=== PATIENT | female | born 1975 | race Caucasian/White ===

== ENCOUNTER 2016-07-22 13:20 | Emergency (ER) | payer SELFPAY ==
[2016-07-22] MEDS ORDERED: Sodium Chloride 0.9% 1,000 ML ONE (13:57)
[2016-07-22 13:58] LABS: Bilirubin Negative (Negative); Blood, Urine Large (Negative); Glucose, Urine (Dipstick) Negative (Negative); Ketone, Urine Negative (Negative); Nitrite Negative (Negative); Protein, Urine (Dipstick) Negative (Neg-Trace)
[2016-07-22 13:59] LABS: RBC/HPF 21-50 HPF (0-3); Squamous Epithelial 0-3 HPF (0-3); WBC/HPF 0-3 HPF (0-3)
[2016-07-22 14:00] LABS: Bacteria/HPF None Seen HPF (None Seen)
[2016-07-22] MEDS ORDERED: diphenhydrAMINE HCl 50 MG/ML 1 ML VIAL ONE (14:15)
[2016-07-22] MEDS ORDERED: Metoclopramide HCl 10 MG/2 ML VIAL ONE (14:16)
--- NOTE | 2016-07-22 15:15 | ERRECORD ---
[facility] HPI NAUSEA/VOMITING/DIARRHEA (13:41 JLOY) CHIEF COMPLAINT: Patient presents for evaluation of nausea, Patient presents for evaluation of vomiting, Number of times: 2, of undigested food, Patient presents for evaluation of Pt woke this am with dizziness and 'seeing white spots'. Vomitted x2 at work and sometime this am developed an occipital TOMAS that feels just like her migraines TOMAS. SHe has them occasionally and they can last days and cause vomitting. Pt also notes some increased vaginal discharge for 1 month and some mild sharp pain in the LLQ x1 month unchanged. HISTORIAN: History provided by patient. LOCATION FEMALE: Symptoms are localized, most severe in the occipital pain. QUALITY: Pain is dull in nature. TIME COURSE: Gradual onset of symptoms, Symptoms are worsening, are constant. ASSOCIATED WITH FEMALE: No associated chills, No associated constipation, No associated diarrhea, No associated fever, No associated flank pain, No associated hematuria, Associated with nausea, No associated inability to tolerate oral intake, No associated urinary tract infection signs or symptoms, Associated with vomiting, Associated with vaginal discharge, No associated vaginal bleeding. EXACERBATED BY: Patient's condition exacerbated by nothing. RELIEVED BY: Patient's condition relieved by nothing. ROS (13:44 JLOY) CONSTITUTIONAL: Historian denies chills, denies fever. EYES: Historian denies eye pain, denies eye redness, denies eye discharge, denies photophobia, reports vision changes. ENT: Historian denies rhinorrhea, denies sore throat. CARDIOVASCULAR: Historian denies chest pain. RESPIRATORY: Historian denies cough, denies shortness of breath, denies sputum. GI: Historian reports abdominal pain, denies constipation, denies diarrhea, denies hematemesis, denies melena, reports nausea, reports vomiting. GENITOURINARY FEMALE: Historian denies dysuria, denies frequency, denies hematuria, denies vaginal bleeding, reports vaginal discharge. MUSCULOSKELETAL: Historian denies back pain. SKIN: Historian denies rash, denies skin changes. NEUROLOGIC: Historian reports dizziness, reports headache, denies paralysis, denies paresthesias, denies sensory changes. PAST MEDICAL HISTORY MEDICAL HISTORY: Tetanus not up to date, Notes: Bladder and Kidney infections previously, Flu vaccine not up to date,. (13:29 BDON) FEMALE SURGICAL HISTORY: Surgical history of tubal &a-1R&a+25V*p+0X*l4660U*c202B*c15G*c2P*p-0X&a-25V&a+1R Name: Kwasi Barraza : 1975 F41 MedRec: [id number] AcctNum: [id number] Prepared: [facility] Jul 22, 2016 15:32 by Interface Page 1 of 3 pMD [facility] EMERGENCY RECORD ligation, Date of surgery 1996. (13:29 BDON) SOCIAL HISTORY: Patient denies alcohol use, Patient denies drug use, Patient has no smoking history, Lives at home, with family. (13:29 BDON) NOTES: Nursing records reviewed, Agree with nursing records. (13:45 JLOY) KNOWN ALLERGIES No Known Drug Allergies CURRENT MEDICATIONS (13:27 BDON) Aspirin Low Dose: TABLET, DELAYED RELEASE (ENTERIC COATED) : Strength - 81 mg : ORAL Patient Dose: Unknown. VITAL SIGNS VITAL SIGNS: BP: 131/66, Resp: 18, Temp: 97.9 (Oral), Pain: 3, O2 sat: 98, Time: 07/22/2016 13:24. (13:24 BDON) Pulse: 76, Time: 07/22/2016 13:27. (13:27 BDON) Resp: 18, Pain: 1, Time: 07/22/2016 15:22. (15:22 BDON) PHYSICAL EXAM (13:44 JLOY) CONSTITUTIONAL: Vital signs reviewed, Patient appears non toxic, Patient alert and oriented to person, place and time. EYES: Eye exam included findings of eyelids normal to inspection, Pupils equally round and reactive to light, Conjunctiva normal. ENT: Pharynx exam normal, Uvula exam normal, Tonsil exam normal, Mouth exam normal, mucous membranes moist. NECK: Neck exam included findings of normal range of motion, Trachea midline. RESPIRATORY CHEST: Respiratory exam included findings of no respiratory distress, Breath sounds clear, No wheezing, No rales, No rhonchi, Chest exam included findings of chest movement symmetrical. CARDIOVASCULAR: Cardiovascular exam included findings of heart rate regular rate and rhythm, Heart sounds normal. ABDOMEN FEMALE: Abdominal exam included findings of abdomen nontender, Bowel sounds normal, Liver normal, Spleen normal, no peritoneal signs, no rigidity, no guarding, no rebound. BACK: Back exam included findings of normal inspection, range of motion normal, no tenderness, no costovertebral angle tenderness. UPPER EXTREMITY: Upper extremity exam included findings of inspection normal, Radial pulse normal, no cyanosis, no clubbing, no edema. LOWER EXTREMITY: Lower extremity exam included findings of inspection normal, no edema, no calf tenderness. NEURO: [place] coma scale 15, Neuro exam findings include patient oriented to person, place and time, Speech normal. SKIN: Skin exam included findings of skin warm, dry, and normal in color, no rash. PSYCHIATRIC: Normal affect. &a-1R&a+25V*p+0X*q1750C*c202B*c15G*c2P*p-0X&a-25V&a+1R Name: Kwasi Barraza : 1975 F41 MedRec: [id number] AcctNum: [id number] Prepared: [facility] Jul 22, 2016 15:32 by Interface Page 2 of 3 pMD [facility] EMERGENCY RECORD MEDICATION ADMINISTRATION SUMMARY Drug Name: metoclopramide injection, Dose Ordered: 10 mg, Route: IV Push, Status: Given, Time: 14:18 07/22/2016, Drug Name: diphenhydrAMINE injection, Dose Ordered: 25 mg, Route: IV Push, Status: Given, Time: 14:17 07/22/2016, Drug Name: sodium chloride 0.9 % intravenous, Dose Ordered: 1 L, Route: IV Fluid Infusion, Status: Given, Time: 14:13 07/22/2016, Detailed record available in Medication Service section. DOCTOR NOTES (15:07 JESUS) RE-EVALUATION: The patient's condition has improved, TOMAS nearly resolved. No more dizziness or nausea. PROBLEM LIST No recorded problems DIAGNOSIS (15:05 JLCOURTNEY) FINAL: PRIMARY: Migraine (unspecified), ADDITIONAL: Nausea with vomiting. PRESCRIPTION No recorded prescriptions DISPOSITION PATIENT: Disposition Type: Discharge, Disposition: *Discharge Home. (15:05 JLOY) Patient left the department. (15:26 BDON) Poe: NIKA=LILLIANA Tejeda Bettye JLOY=MD Rodriguez Joshua &a-1R&a+25V*p+0X*w0711P*c202B*c15G*c2P*p-0X&a-25V&a+1R Name: Nir Barrazamayur Gutierrez : 1975 F41 MedRec: [id number] AcctNum: [id number] Prepared: A[facility] Jul 22, 2016 15:32 by Interface Page 3 of 3 pMD MTDD
--- NOTE | 2016-07-22 15:22 | PICIS ---
[facility] EMERGENCY RECORD TRIAGE (13:26 BDON) TRIAGE NOTES: Dizzy, vomiting, headache, no fever, supra pubic pain described as sharp. (13:26 BDON) PATIENT: NAME: Kwasi Barraza, AGE: 41, GENDER: female, : Tue1975, TIME OF GREET: TueJul 22, 2016 13:21, PREFERRED LANGUAGE: Peruvian, ETHNICITY: Not or , ECODE BILLING MAP: [facility], SSN: [id number], Zip Code: [address], KG WEIGHT: 72.57, PHONE: , , , PERSON ID: [id number], PCP: none. (13:26 BDON) COMPLAINT: DIZZINESS,NAUSEA,HEADACHE. (13:26 BDON) ADMISSION: URGENCY: 4 Non Urgent, ADMISSION SOURCE: Home, TRANSPORT: Walk-in, BED: TRIAGE. (13:26 BDON) ASSESSMENT: Assessment: Dizziness, headache and supra pubic pain, saw white dots when woke up but normal now, Symptoms began 7 hours ago. (13:29 BDON) LMP: Last menstrual period: 07/18/2016. (13:29 BDON) PROVIDERS: TRIAGE NURSE: Crystal Tejeda RN. (13:26 BDON) VITAL SIGNS: BP 131/66, Resp 18, Temp 97.9, (Oral), Pain 3, O2 Sat 98, Time 07/22/2016 13:24. (13:24 BDON) Pulse 76, Time 07/22/2016 13:27. (13:27 BDON) PREVIOUS VISIT ALLERGIES: No Known Drug Allergies. (13:26 BDON) No Known Drug Allergies. (13:29 BDON) KNOWN ALLERGIES No Known Drug Allergies CURRENT MEDICATIONS (13:27 BDON) Aspirin Low Dose: TABLET, DELAYED RELEASE (ENTERIC COATED) : Strength - 81 mg : ORAL Patient Dose: Unknown. VITAL SIGNS VITAL SIGNS: BP: 131/66, Resp: 18, Temp: 97.9 (Oral), Pain: 3, O2 sat: 98, Time: 07/22/2016 13:24. (13:24 BDON) Pulse: 76, Time: 07/22/2016 13:27. (13:27 BDON) Resp: 18, Pain: 1, Time: 07/22/2016 15:22. (15:22 BDON) NURSING ASSESSMENT: GENITOURINARY (13:35 BDON) CONSTITUTIONAL: Patient arrives ambulatory, Gait steady, History obtained from patient, Patient appears, uncomfortable, Patient cooperative, Patient alert, Oriented to person, place and time, Skin warm, Skin dry, Skin normal in color. GENITOURINARY FEMALE: no associated urinary complaints, Associated with vaginal discharge, states always have vaginal discharge, Associated with vaginal bleeding. ABDOMEN: Abdomen assessment findings include abdomen symmetrical, Abdomen soft, non-tender. SAFETY: Cart/Stretcher in lowest position, Family at bedside, Hospital ID band on, Patient in view of the nursing station. &a-1R&a+25V*p+0X*k8946V*c202B*c15G*c2P*p-0X&a-25V&a+1R Name: Christi Kwasi M : 1975 F41 MedRec: [id number] AcctNum: [id number] Prepared: [facility] Jul 22, 2016 15:32 by Interface Page 1 of 7 pMD [facility] EMERGENCY RECORD NURSING PROCEDURE: DISCHARGE NOTE (15:22 BDON) DISCHARGE: Patient discharged to home, ambulating without assistance, family driving, Summary of Care printed/ provided, Patient requested and was provided an electronic copy of Discharge Instructions, Transition record given to patient, Discharge instructions given to patient, Simple or moderate discharge teaching performed, Patient treated and evaluated by physician. VITAL SIGNS: Resp: 18, Pain: 1. NURSING PROCEDURE: IV PATIENT IDENITIFIER: Patient actively involved in identification process. (14:08 BDON) Patient actively involved in identification process. (15:15 BDON) IV SITE 1: IV therapy indicated for hydration, IV therapy indicated for medication administration, IV established, to the right wrist, using a 22 gauge catheter, in two attempts. (14:08 BDON) FOLLOW-UP SITE 1: IV discontinued, due to patient being discharged, catheter intact. (15:15 BDON) NURSING PROCEDURE: NURSE NOTES (14:50 BDON) NURSES NOTES: Patient is improving, Notes: normal saline placed in pressure bag to infuse faster,. ORDER DETAILS Order Name: GC/Chlamydia Profile by PCR, Status: Active, Time: 13:44 07/22/2016, User: JESUS, - Ordered for: MD Rodriguez Joshua, - Entered by: MD Rordiguez Joshua - [facility] Jul 22, 2016 13:44, - Quantity: 1, Order Name: Test, Urine (BHCG), Status: Active, Time: 13:33 07/22/2016, User: NIKA, - Ordered for: MD Rodriguez Joshua, - Entered by: LILLIANA Tejeda, Crystal [facility] Jul 22, 2016 13:33, - Quantity: 1, Order Name: SALINE LOCK, Status: Done, Time: 14:54 07/22/2016, User: NIKA, - Ordered for: MD Rodriguez Joshua, - Entered by: MD Rodriguez Joshua - [facility] Jul 22, 2016 13:41, - Quantity: 1, Order Name: Urinalysis w/ Rflx Microscopic, Status: Active, Time: 13:33 07/22/2016, User: NIKA, - Ordered for: MD Rodriguez Joshua, - Entered by: LILLIANA Tejeda, Crystal [facility] Jul 22, 2016 13:33, - Quantity: 1. MEDICATION ADMINISTRATION SUMMARY Drug Name: metoclopramide injection, Dose Ordered: 10 mg, Route: IV &a-1R&a+25V*p+0X*y5112B*c202B*c15G*c2P*p-0X&a-25V&a+1R Name: Kwasi Barraza : 1975 F41 MedRec: [id number] AcctNum: [id number] Prepared: TueJul 22, 2016 15:32 by Interface Page 2 of 7 pMD [facility] EMERGENCY RECORD Push, Status: Given, Time: 14:18 07/22/2016, Drug Name: diphenhydrAMINE injection, Dose Ordered: 25 mg, Route: IV Push, Status: Given, Time: 14:17 07/22/2016, Drug Name: sodium chloride 0.9 % intravenous, Dose Ordered: 1 L, Route: IV Fluid Infusion, Status: Given, Time: 14:13 07/22/2016, Detailed record available in Medication Service section. MEDICATION SERVICE diphenhydrAMINE injection: Order: diphenhydrAMINE injection (diphenhydramine HCl) - Dose: 25 mg : IV Push Ordered by: Storm Rodriguez MD Entered by: Storm Rodriguez MD [facility] Jul 22, 2016 13:41 Documented as given by: Crystal Tejeda RN [facility] Jul 22, 2016 14:17 Patient, Medication, Dose, Route and Time verified prior to administration. IV SITE #1 IVP, Catheter placement confirmed via flush prior to administration, IV site without signs or symptoms of infiltration during medication administration, No swelling during administration, No drainage during administration, IV flushed after administration, Correct patient, time, route, dose and medication confirmed prior to administration, Patient advised of actions and side-effects prior to administration, Allergies confirmed and medications reviewed prior to administration. : Follow Up : _IV SITE #1:_. (14:20 BDON) metoclopramide injection: Order: metoclopramide injection (metoclopramide HCl) - Dose: 10 mg : IV Push Ordered by: Storm Rodriguez MD Entered by: Storm Rodriguez MD [facility] Jul 22, 2016 13:41 Documented as given by: Crystal Tejeda RN [facility] Jul 22, 2016 14:18 Patient, Medication, Dose, Route and Time verified prior to administration. IV SITE #1 IVP. : Follow Up : _IV SITE #1:_, iv push. (14:20 BDON) sodium chloride 0.9 % intravenous: Order: sodium chloride 0.9 % intravenous (0.9 % sodium chloride) - Dose: 1 L : IV Fluid Infusion Ordered by: Storm Rodriguez MD Entered by: Storm Rodriguez MD [facility] Jul 22, 2016 13:41 Documented as given by: Crystal Tejeda RN [facility] Jul 22, 2016 14:13 Patient, Medication, Dose, Route and Time verified prior to administration. Amount given: 1000 ml, IV SITE #1 IV fluids established for hydration, Catheter placement confirmed via flush prior to administration, IV site without signs or symptoms of infiltration during medication administration, No swelling during administration, No drainage during administration, IV flushed after administration, Correct patient, time, route, dose and medication confirmed prior to administration, Patient advised of actions and side-effects prior to administration, Allergies confirmed and medications reviewed prior to administration, Patient in position of comfort, Cart in lowest &a-1R&a+25V*p+0X*c3440X*c202B*c15G*c2P*p-0X&a-25V&a+1R Name: Kwasi Barraza : 1975 F41 MedRec: [id number] AcctNum: [id number] Prepared: TueJul 22, 2016 15:32 by Interface Page 3 of 7 pMD [facility] EMERGENCY RECORD position, Family at bedside. : Follow Up : No signs or symptoms of allergic reaction noted, _IV SITE #1:_, IV fluid infusion discontinued, on TueJul 22, 2016 15:02, 50 minutes, . (15:22 BDON) HPI NAUSEA/VOMITING/DIARRHEA (13:41 JLOY) CHIEF COMPLAINT: Patient presents for evaluation of nausea, Patient presents for evaluation of vomiting, Number of times: 2, of undigested food, Patient presents for evaluation of Pt woke this am with dizziness and 'seeing white spots'. Vomitted x2 at work and sometime this am developed an occipital TOMAS that feels just like her migraines TOMAS. SHe has them occasionally and they can last days and cause vomitting. Pt also notes some increased vaginal discharge for 1 month and some mild sharp pain in the LLQ x1 month unchanged. HISTORIAN: History provided by patient. LOCATION FEMALE: Symptoms are localized, most severe in the occipital pain. QUALITY: Pain is dull in nature. TIME COURSE: Gradual onset of symptoms, Symptoms are worsening, are constant. ASSOCIATED WITH FEMALE: No associated chills, No associated constipation, No associated diarrhea, No associated fever, No associated flank pain, No associated hematuria, Associated with nausea, No associated inability to tolerate oral intake, No associated urinary tract infection signs or symptoms, Associated with vomiting, Associated with vaginal discharge, No associated vaginal bleeding. EXACERBATED BY: Patient's condition exacerbated by nothing. RELIEVED BY: Patient's condition relieved by nothing. ROS (13:44 JLOY) CONSTITUTIONAL: Historian denies chills, denies fever. EYES: Historian denies eye pain, denies eye redness, denies eye discharge, denies photophobia, reports vision changes. ENT: Historian denies rhinorrhea, denies sore throat. CARDIOVASCULAR: Historian denies chest pain. RESPIRATORY: Historian denies cough, denies shortness of breath, denies sputum. GI: Historian reports abdominal pain, denies constipation, denies diarrhea, denies hematemesis, denies melena, reports nausea, reports vomiting. GENITOURINARY FEMALE: Historian denies dysuria, denies frequency, denies hematuria, denies vaginal bleeding, reports vaginal discharge. MUSCULOSKELETAL: Historian denies back pain. SKIN: Historian denies rash, denies skin changes. NEUROLOGIC: Historian reports dizziness, reports headache, denies paralysis, denies paresthesias, denies sensory changes. &a-1R&a+25V*p+0X*z0197X*c202B*c15G*c2P*p-0X&a-25V&a+1R Name: Kwasi Barraza : 1975 F41 MedRec: [id number] AcctNum: [id number] Prepared: Amy Jul 22, 2016 15:32 by Interface Page 4 of 7 pMD [facility] EMERGENCY RECORD PAST MEDICAL HISTORY MEDICAL HISTORY: Tetanus not up to date, Notes: Bladder and Kidney infections previously, Flu vaccine not up to date,. (13:29 BDON) FEMALE SURGICAL HISTORY: Surgical history of tubal ligation, Date of surgery 1996. (13:29 BDON) SOCIAL HISTORY: Patient denies alcohol use, Patient denies drug use, Patient has no smoking history, Lives at home, with family. (13:29 BDON) NOTES: Nursing records reviewed, Agree with nursing records. (13:45 JLOY) PHYSICAL EXAM (13:44 JLOY) CONSTITUTIONAL: Vital signs reviewed, Patient appears non toxic, Patient alert and oriented to person, place and time. EYES: Eye exam included findings of eyelids normal to inspection, Pupils equally round and reactive to light, Conjunctiva normal. ENT: Pharynx exam normal, Uvula exam normal, Tonsil exam normal, Mouth exam normal, mucous membranes moist. NECK: Neck exam included findings of normal range of motion, Trachea midline. RESPIRATORY CHEST: Respiratory exam included findings of no respiratory distress, Breath sounds clear, No wheezing, No rales, No rhonchi, Chest exam included findings of chest movement symmetrical. CARDIOVASCULAR: Cardiovascular exam included findings of heart rate regular rate and rhythm, Heart sounds normal. ABDOMEN FEMALE: Abdominal exam included findings of abdomen nontender, Bowel sounds normal, Liver normal, Spleen normal, no peritoneal signs, no rigidity, no guarding, no rebound. BACK: Back exam included findings of normal inspection, range of motion normal, no tenderness, no costovertebral angle tenderness. UPPER EXTREMITY: Upper extremity exam included findings of inspection normal, Radial pulse normal, no cyanosis, no clubbing, no edema. LOWER EXTREMITY: Lower extremity exam included findings of inspection normal, no edema, no calf tenderness. NEURO: [place] coma scale 15, Neuro exam findings include patient oriented to person, place and time, Speech normal. SKIN: Skin exam included findings of skin warm, dry, and normal in color, no rash. PSYCHIATRIC: Normal affect. EVENTS TRANSFER: Triage to Emergency Triage. (TueJul 22, 2016 13:26 BDON) Emergency Triage to Emergency Room -03. (13:27 BDON) Removed from Emergency Emergency Room -03. (15:26 BDON) DOCTOR NOTES (15:07 JLOY) RE-EVALUATION: The patient's condition has improved, TOMAS &a-1R&a+25V*p+0X*q0567D*c202B*c15G*c2P*p-0X&a-25V&a+1R Name: Kwasi Barraza : 1975 F41 MedRec: [id number] AcctNum: [id number] Prepared: TueJul 22, 2016 15:32 by Interface Page 5 of 7 pMD [facility] EMERGENCY RECORD nearly resolved. No more dizziness or nausea. PROBLEM LIST No recorded problems DIAGNOSIS (15:05 JLOY) FINAL: PRIMARY: Migraine (unspecified), ADDITIONAL: Nausea with vomiting. DISPOSITION PATIENT: Disposition Type: Discharge, Disposition: *Discharge Home. (15:05 JLOY) Patient left the department. (15:26 BDON) INSTRUCTION (15:06 JLOY) DISCHARGE: MIGRAINE HEADACHE. FOLLOWUP: Follow up with Primary Care Physician in 7-10 days. SPECIAL: Follow up with your doctor to look into the abdominal pain you have been having for the past month or so. If it worsens before you can see your doctor you should return to the ER. PRESCRIPTION No recorded prescriptions IMAGING *DISCHARGE INSTRUCTIONS RECEIPT: Image captured from scanner. (15:25 BDON) *SUPPLY CHARGE SHEET: Image captured from scanner. (15:26 BDON) ADMIN DIGITAL SIGNATURE: MD Michael, Storm. (15:07 JL) MD Rodriguez Joshua. (15:07 JL) LILLIANA Tejeda, Crystal. (15:26 BDON) RESULTS (15:05 JL) LABORATORY: Urine Microscopic Collection DT: TueJul 22, 2016 13:57, *RBC/HPF 21-50 - H HPF, Range (0-3), WBC/HPF 0-3 HPF, Range (0-3), Squamous Epithelial 0-3 HPF, Range (0-3), Bacteria/HPF None Seen HPF, Range (None Seen). Urinalysis w/ Rflx Microscopic Collection DT: TueJul 22, 2016 13:57, Color Yellow , Range (Yellow), Clarity Slightly Cloudy , Range (Clear), Specific Gays, Urine 1.025 , Range (1.005-1.030), pH, Urine 6.5 , Range (5.0-9.0), Leukocyte Negative , Range (Negative), Nitrite Negative , Range (Negative), Protein, Urine (Dipstick) Negative mg/dL, Range (Neg-Trace), Glucose, Urine (Dipstick) Negative mg/dL, Range (Negative), &a-1R&a+25V*p+0X*f6686G*c202B*c15G*c2P*p-0X&a-25V&a+1R Name: Kwasi Barraza Matt : 1975 F41 MedRec: [id number] AcctNum: [id number] Prepared: TueJul 22, 2016 15:32 by Interface Page 6 of 7 pMD [facility] EMERGENCY RECORD Ketone, Urine Negative mg/dL, Range (Negative), *Urobilinogen 2.0 - H mg/dL, Range (0.2-1.0), Bilirubin Negative , Range (Negative), *Blood, Urine Large - H , Range (Negative). Test, Urine ([facility]) Collection DT: TueJul 22, 2016 13:57, Test - Urine (BHCG) NEGATIVE , Range (NEGATIVE), Method of sensitivity- Indeterminant: results should be repeated, after 48 hours. Positive: results may be detected as early as 4-5 days before a first missed menses. Elimination of BHCG-, Elimination following first trimester D&C: 29-44 Days , Elimination following term : 8-24 Days , Specific Gays 1.025 , Range (1.002-1.036), A dilute urine specimen may, not contain customer engagement representative levels of hCG. If is still, suspected, a first morning urine specimen OR a random blood specimen should, be obtained from the patient 48-72 hours later and re-tested. , . Poe: NIKA=LILLIANA Tejeda, Crystal LEE=MD Michael, Storm &a-1R&a+25V*p+0X*c2130V*c202B*c15G*c2P*p-0X&a-25V&a+1R Name: Kwasi Barraza : 1975 F41 MedRec: [id number] AcctNum: [id number] Prepared: TueJul 22, 2016 15:32 by Interface Page 7 of 7 D [facility] MEDICATION RECONCILIATION You were seen in the Emergency Department on: TueJul 22, 2016 KNOWN ALLERGIES No Known Drug Allergies MEDICATIONS GIVEN WHILE IN THE EMERGENCY DEPARTMENT diphenhydrAMINE injection (diphenhydramine HCl) - Dose: 25 milligram(s) : IV Push metoclopramide injection (metoclopramide HCl) - Dose: 10 milligram(s) : IV Push sodium chloride 0.9 % intravenous (0.9 % sodium chloride) - Dose: 1 liter(s) : IV Fluid Infusion HOME MEDICATIONS CONTINUE PRESCRIBED Aspirin Low Dose : TABLET, DELAYED RELEASE (ENTERIC COATED) : Strength - 81 mg : ORAL Continue as prescribed Patient had been taking: Dose unknown &a-1R&a+25V*p+0X*a0707S*c202B*c15G*c2P*p-0X&a-25V&a+1R Name: Kwasi Barraza : 1975 F41 MedRec: [id number] AcctNum: [id number] Prepared: TueJul 22, 2016 15:32 by Interface pMAnna CASTILLO
== END 2016-07-22 15:22 | disposition home or self-care (01) ==
LOC: NAV ERS 13:20
DX: G43.909 Migraine, unspecified, not intractable, without status migrainosus (principal); Z79.82 Long term (current) use of aspirin
CPT/HCPCS: 81003; 81015; 81025; 87491; 87591; 96361; 96374; 96375; J1200; J2765; J7050

== ENCOUNTER 2016-12-07 21:44 | Emergency (ER) | payer SELFPAY ==
[2016-12-07] MEDS ORDERED: Pantoprazole 40 MG VIAL ONE (22:19)
[2016-12-07] MEDS ORDERED: Ondansetron HCl/PF 4 MG/2 ML Vial ONE (22:20)
[2016-12-07] MEDS ORDERED: Sodium Chloride 0.9% 1,000 ML ONE (22:34)
[2016-12-07 22:36] LABS: Prothrombin Time 13.5 SEC (12.0-14.7)
[2016-12-07 22:38] LABS: #Basophils 0.1 thou/uL (0.0-0.2); #Eosinphils 0.5 thou/uL (0.0-0.7); #Lymphocytes 2.1 thou/uL (1.20-3.40); #Monocytes 0.5 thou/uL (0.11-0.59); #Neutrophils 4.7 thou/uL (1.40-6.50); %Basophils 1.4 % (0.0-1.0); %Eosinophils 6.2 % (0.0-10.0); %Lymphocytes 26.7 % (21.0-51.0); %Monocytes 6.8 % (0.0-10.0); %Neutrophils 58.9 % (42.0-75.0); Hemoglobin 10.6 g/dL (12.0-16.0); Hypochromia SLIGHT = 6-15 cells (100X) (0-5/hpf); MDiff Complete? YES; Mean Corpuscular HGB CONC 31.6 g/dL (32.0-36.0); Mean Corpuscular Hemoglobin 23.3 pg (27.0-31.0); Mean Corpuscular Volume 73.6 fl (81.0-99.0); Mean Platelet Volume 6.3 fL (7.4-10.4); Microcytosis MODERATE=15-30 cells (100X) (0-5/hpf); PLT Morphology Comment Appears Adequate; Platelet Count 313 thou/uL (130-400); RBC Distribution Width 14.6 % (11.5-14.5); Red Blood Cell (RBC) Count 4.57 mill/uL (4.20-5.40); White Blood Cell (WBC) Count 7.9 thou/uL (4.8-10.8)
[2016-12-07 22:42] LABS: D-Dimer Test Less than 0.27 *mcg/mL (0.27-0.43)
[2016-12-07 22:44] LABS: Blood, Urine Moderate (Negative); Glucose, Urine (Dipstick) Negative (Negative); Leukocyte Trace (Negative); Nitrite Negative (Negative); Protein, Urine (Dipstick) 30 mg/dL (Neg-Trace)
[2016-12-07 22:45] LABS: Clarity Hazy (Clear)
[2016-12-07 22:46] LABS: Bilirubin Negative (Negative); Icto Negative (Negative); Specific Gravity, Urine 1.031 (1.002-1.036)
[2016-12-07 22:46] LABS: ALT (SGPT) 12 U/L (8-55); AST (SGOT) 17 U/L (5-34); Albumin 3.7 g/dL (3.5-5.0); Alkaline Phosphatase 77 U/L (40-150); Anion Gap 15 mmol/L (10-20); BUN (Urea Nitrogen) 9 mg/dL (7.0-18.7); Bilirubin, Total 0.3 mg/dL (0.2-1.2); Calc. Creatinine Clearance 0 mL/min (70-130); Calcium 8.9 mg/dL (7.8-10.44); Carbon Dioxide 23 mmol/L (22-29); Chloride 105 mmol/L (98-107); Estimated GFR-MDRD 68; Globulin 3.2 g/dL (2.4-3.5); Glucose 112 mg/dL (70-105); Lipase 22 U/L (8-78); Potassium 3.6 mmol/L (3.5-5.1); Protein, Total 6.9 g/dL (6.0-8.3); Sodium 139 mmol/L (136-145)
[2016-12-07 22:47] LABS: CKMB 1.9 ng/mL (0-6.6)
[2016-12-07 22:49] LABS: Bacteria/HPF 1+ HPF (None Seen); Squamous Epithelial 0-3 HPF (0-3)
--- NOTE | 2016-12-07 23:25 | RAD ---
FRONTAL RADIOGRAPH CHEST UPRIGHT AND SUPINE FRONTAL IMAGING OF ABDOMEN AND PELVIS 12/07/16 COMPARISON: None. HISTORY: Chest pain and vomiting, nausea. FINDINGS: FRONTAL RADIOGRAPH CHEST: No pneumothorax, pleural fluid, focal consolidation, or alveolar edema. Heart and mediastinal contou rs within normal limits. FRONTAL IMAGING OF ABDOMEN AND PELVIS: Upright imaging demonstrates no free intraperitoneal air or air fluid levels. The bowel gas pattern appears nonobstructed. Numerous calcifications in the pelvis suggests phleboliths. IMPRESSION: No radiographic evidence of acute cardiopulmonary disease, free intraperitoneal air, or small bowel obstruction. POS: [facility]
== END 2016-12-07 23:47 | disposition home or self-care (01) ==
LOC: NAV ERS 21:44
DX: K52.9 Noninfective gastroenteritis and colitis, unspecified (principal); R07.89 Other chest pain; I25.2 Old myocardial infarction; Z87.891 Personal history of nicotine dependence
CPT/HCPCS: 36415; 74022; 80053; 81003; 81015; 82553; 83690; 83880; 84484; 85025; 85379; 85610; 93005; 96361; 96374; 96375; C9113; J2405; J7050

== ENCOUNTER 2017-01-17 17:46 | Emergency (ER) | payer OTHER, SELFPAY ==
--- NOTE | 2017-01-17 18:36 | RAD ---
RIGHT SHOULDER THREE VIEWS: History: Shoulder pain, starting 4-5 months ago, getting worse. Comparison: None. FINDINGS: Mild degenerative disease of the acromioclavicular joint. There is ossification of the superior acro mioclavicular joint capsule. There is a faint calcification projecting over the rotator cuff. Ribs are unremarkable. IMPRESSION: 1. Low grade calcific tendinosis of the rotator cuff could be the source of patient's pain. 2. 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 POS: [facility]
== END 2017-01-17 18:45 | disposition home or self-care (01) ==
LOC: NAV ERS 17:46
DX: M25.511 Pain in right shoulder (principal); I25.2 Old myocardial infarction; Z87.891 Personal history of nicotine dependence; X50.9XXA Other and unspecified overexertion or strenuous movements or postures, initial encounter

== ENCOUNTER 2017-02-04 08:50 | Emergency (ER) | payer OTHER ==
[2017-02-04] MEDS ORDERED: Sodium Chloride 0.9% 1,000 ML ONE (09:24)
[2017-02-04] MEDS ORDERED: diphenhydrAMINE HCl 50 MG/ML 1 ML VIAL ONE (09:24)
[2017-02-04 09:59] LABS: ALT (SGPT) 14 U/L (8-55); AST (SGOT) 18 U/L (5-34); Albumin 3.6 g/dL (3.5-5.0); Alkaline Phosphatase 78 U/L (40-150); Anion Gap 10 mmol/L (10-20); BUN (Urea Nitrogen) 8 mg/dL (7.0-18.7); Bilirubin, Total 0.4 mg/dL (0.2-1.2); Calc. Creatinine Clearance 0 mL/min (70-130); Calcium 8.5 mg/dL (7.8-10.44); Carbon Dioxide 28 mmol/L (22-29); Chloride 105 mmol/L (98-107); Estimated GFR-MDRD 73; Globulin 2.9 g/dL (2.4-3.5); Glucose 97 mg/dL (70-105); Potassium 3.5 mmol/L (3.5-5.1); Protein, Total 6.5 g/dL (6.0-8.3); Sodium 139 mmol/L (136-145)
[2017-02-04 10:02] LABS: Hemoglobin 9.6 g/dL (12.0-16.0); Mean Corpuscular HGB CONC 31.6 g/dL (32.0-36.0); Mean Corpuscular Volume 72.9 fl (81.0-99.0); Mean Platelet Volume 5.9 fL (7.4-10.4); Platelet Count 285 thou/uL (130-400); RBC Distribution Width 14.1 % (11.5-14.5); Red Blood Cell (RBC) Count 4.17 mill/uL (4.20-5.40); White Blood Cell (WBC) Count 6.9 thou/uL (4.8-10.8)
[2017-02-04 10:03] LABS: #Basophils 0.1 thou/uL (0.0-0.2); #Eosinphils 0.6 thou/uL (0.0-0.7); #Lymphocytes 1.6 thou/uL (1.20-3.40); #Monocytes 0.5 thou/uL (0.11-0.59); #Neutrophils 4.2 thou/uL (1.40-6.50); %Basophils 1.4 % (0.0-1.0); %Eosinophils 8.7 % (0.0-10.0); %Lymphocytes 22.6 % (21.0-51.0); %Monocytes 7.1 % (0.0-10.0); %Neutrophils 60.1 % (42.0-75.0)
[2017-02-04 10:26] LABS: Anisocytosis SLIGHT = 6-15 cells (100X) (0-5/hpf); Hypochromia SLIGHT = 6-15 cells (100X) (0-5/hpf); MDiff Complete? YES; Microcytosis SLIGHT = 6-15 cells (100X) (0-5/hpf); Poikilocytosis SLIGHT = 6-15 cells (100X) (0-5/hpf)
== END 2017-02-04 10:35 | disposition home or self-care (01) ==
LOC: NAV ERS 08:50
DX: R11.2 Nausea with vomiting, unspecified (principal); R19.7 Diarrhea, unspecified; R21 Rash and other nonspecific skin eruption; D64.9 Anemia, unspecified; T37.3X5A Adverse effect of other antiprotozoal drugs, initial encounter; Z87.891 Personal history of nicotine dependence; Z79.899 Other long term (current) drug therapy
CPT/HCPCS: 36415; 80053; 85025; 96361; 96374; J1200; J7050

== ENCOUNTER 2018-01-18 20:25 | Emergency (ER) | payer OTHER, SELFPAY ==
[2018-01-18 21:07] LABS: #Basophils 0.1 thou/uL (0.0-0.2); #Eosinphils 0.2 thou/uL (0.0-0.7); #Monocytes 0.5 thou/uL (0.11-0.59); #Neutrophils 4.5 thou/uL (1.40-6.50); %Basophils 1.2 % (0.0-1.0); %Lymphocytes 27.2 % (21.0-51.0); %Monocytes 6.6 % (0.0-10.0); Hemoglobin 9.2 g/dL (12.0-16.0); Mean Corpuscular HGB CONC 29.4 g/dL (32.0-36.0); Mean Corpuscular Hemoglobin 20.3 pg (27.0-31.0); Mean Corpuscular Volume 68.9 fL (78.0-98.0); Mean Platelet Volume 6.2 fL (7.4-10.4); Platelet Count 339 thou/uL (130-400); RBC Distribution Width 14.4 % (11.5-14.5); Red Blood Cell (RBC) Count 4.54 mill/uL (4.20-5.40); White Blood Cell (WBC) Count 7.3 thou/uL (4.8-10.8)
--- NOTE | 2018-01-18 21:17 | CT ---
CT BRAIN WITHOUT CONTRAST: 01/18/18 HISTORY: Dizziness, headache. FINDINGS: No evidence of acute infarct, hemorrhage, midline shift, or abnormal extra-axial fluid collections ar e seen. The ventricular size is normal and the basilar cisterns patent. The bony calvarium is intact. The visualized paranasal sinuses and mastoid air cells are well aerated. IMPRESSION: No CT evidence of acute intracranial process. POS: [facility]
[2018-01-18 21:19] LABS: ALT (SGPT) 16 U/L (8-55); AST (SGOT) 19 U/L (5-34); Alkaline Phosphatase 95 U/L (40-150); Anion Gap 13 mmol/L (10-20); BUN (Urea Nitrogen) 10 mg/dL (7.0-18.7); Bilirubin, Total 0.2 mg/dL (0.2-1.2); CK (CPK) 237 U/L (29-168); Calc. Creatinine Clearance 0 mL/min (70-130); Calcium 9.3 mg/dL (7.8-10.44); Carbon Dioxide 22 mmol/L (22-29); Chloride 107 mmol/L (98-107); Estimated GFR-MDRD 70; Globulin 2.8 g/dL (2.4-3.5); Glucose 97 mg/dL (70-105); Potassium 3.5 mmol/L (3.5-5.1); Protein, Total 6.8 g/dL (6.0-8.3); Sodium 138 mmol/L (136-145)
[2018-01-18 21:20] LABS: CKMB 2.8 ng/mL (0-6.6); Troponin I Less than 0.010 ng/mL (< 0.028)
[2018-01-18 21:22] LABS: PTT 30.9 SEC (22.9-36.1)
[2018-01-18 21:23] LABS: INR-International Normal Ratio 0.9; Prothrombin Time 12.7 SEC (12.0-14.7)
[2018-01-18 21:24] LABS: Bilirubin Negative (Negative); Blood, Urine Trace (Negative); D-Dimer Test Less than 0.27 *mcg/mL (0.27-0.43); Glucose, Urine (Dipstick) Negative (Negative); Leukocyte Negative (Negative); Nitrite Negative (Negative); Protein, Urine (Dipstick) Negative (Neg-Trace); Urobilinogen 0.2 mg/dL (0.2-1.0)
--- NOTE | 2018-01-18 21:29 | RAD ---
CHEST PA AND LATERAL TWO VIEWS: 01/18/18 HISTORY: 42-year-old female with history of chest pain, blackouts, dizziness. Heart size is within normal limits. The lungs are clear. No pneumonia, edema, pleural effusion or oth er acute process. IMPRESSION: No acute intrathoracic disease. POS: [facility]
[2018-01-18 21:30] LABS: Clarity SL HAZY (Clear)
[2018-01-18 21:35] LABS: Cocaine Metabolite Screen Not Detected (NotDetected); Methamphetamine Not Detected (NotDetected); Phencyclidine (PCP) Not Detected (NotDetected); THC/Cannabinoid Screen Not Detected (NotDetected)
[2018-01-18 21:36] LABS: Amphetamine Not Detected (NotDetected); Barbiturates Screen Not Detected (NotDetected); Benzodiazepine Screen Not Detected (NotDetected); Medtox Control Line Valid? VALID (VALID); Methadone Not Detected (NotDetected); Opiate Screen Not Detected (NotDetected); Oxycodone Screen Not Detected (NotDetected); Tricyclic Screen Not Detected (NotDetected)
[2018-01-18 21:37] LABS: Bacteria/HPF Rare-Few HPF (None Seen); RBC/HPF 0-3 HPF (0-3)
== END 2018-01-18 22:04 | disposition home or self-care (01) ==
LOC: NAV ERS 20:25
DX: R55 Syncope and collapse (principal); D64.9 Anemia, unspecified; I45.10 Unspecified right bundle-branch block; I50.1 Left ventricular failure, unspecified; I11.0 Hypertensive heart disease with heart failure; I25.2 Old myocardial infarction; Z87.891 Personal history of nicotine dependence
CPT/HCPCS: 36416; 70450; 71046; 80053; 80306; 81003; 81015; 82550; 82553; 84443; 84484; 85025; 85379; 85610; 85730; 93005

== ENCOUNTER 2018-06-29 20:59 | Emergency (ER) | payer SELFPAY | END 2018-06-29 21:45 | disposition home or self-care (01) | LOC: NAV ERS 20:59 | DX: H66.41 Suppurative otitis media, unspecified, right ear (principal); I10 Essential (primary) hypertension; I25.2 Old myocardial infarction; Z87.891 Personal history of nicotine dependence | CPT/HCPCS: 99283 ==